=== PATIENT | female | born 1945 | race Two or more races ===

== ENCOUNTER → 2018-03-01 06:00 | Outpatient (CLI) | payer OTHER ==
[~2018-03-01] VITALS: Ht 160 cm; Wt 78.0 kg
[~2018-03-01 06:00] MED LIST: BIOFLEX TABLET1 EACH PO; CLONAZEPAM1 MG PO; DAILY AMINO1 EACH; FOLINIC-PLUS C1 EACH PO; GABAPENTIN800 MG PO; LEVO-T88 MCG PO; METROPOLOL PO; PRAVASTATIN SOD40 MG PO; TRAZODONE HCL150 MG PO; [UNRECOGNIZED DRUG - OTHER]; [UNRECOGNIZED DRUG - OTHER] PO
== END | disposition home or self-care (01) ==
LOC: LAB 06:00 → EKG 06:00 → RECOVERY 03-08 05:40 → O/R 03-08 05:40 → RECOVERY 03-08 09:30 → EDSTATUS 03-08 10:00 → RECOVERY 03-08 10:00
DX: M17.12 Unilateral primary osteoarthritis, left knee (principal); Z01.810 Encounter for preprocedural cardiovascular examination